=== PATIENT | female | born 1965 | race Caucasian/White ===

== ENCOUNTER 2021-02-09 03:48 | Emergency (ER) | payer OTHER ==
[2021-02-09] MEDS ORDERED: IBUPROFEN600 MG PO (04:47)
== END 2021-02-09 05:45 | disposition home or self-care (01) ==
LOC: ER1 03:48
DX: M25.511 Pain in right shoulder (principal); M79.671 Pain in right foot; M79.672 Pain in left foot; E78.5 Hyperlipidemia, unspecified; I10 Essential (primary) hypertension; F17.200 Nicotine dependence, unspecified, uncomplicated
CPT/HCPCS: 73030; 73630; 99283